=== PATIENT | male | born 1990 | race Caucasian/White ===

== ENCOUNTER 2017-05-16 19:51 | Emergency (ER) | payer SELFPAY ==
[~2017-05-16] VITALS: Ht 180.3 cm; Wt 78.0 kg
[~2017-05-16 19:51] MED LIST: CEPH500 PO; CITA40 PO; QUET200 PO
[2017-05-16 19:53] VITALS: BP 115/66; PULSE 76; RESP 16; TEMP 98.1; O2SAT 96
[2017-05-16 20:10] VITALS: BP 113/56; PULSE 80; RESP 17; O2SAT 98
--- NOTE | 2017-05-16 20:14 | PD ---
HPI Chief Complaint: Alcohol/Drug Intoxication Time Seen by Provider: 20:05 Travel History International Travel<30 days: No Contact w/Intl Traveler<30days: No Traveled to known affect area: No History of Present Illness HPI This is a 27-year-old male who reports that he has been diagnosed with bipolar disorder, PTSD. He presents voluntarily requesting psychiatric evaluation. He reports that for 6 years he has been feeling depressed and over the past several months he has been feeling increasingly suicidal. He reports that yesterday he attempted to jump in front of a car in order to kill himself however the car swerved at the last minute. He reports he quit drug use as well , today's injected meth and Dilaudid into his forearms. He also drank for loco. He went initially to [facility] in an attempt to enter their drug detoxification center however because there are full he presents here now requesting psychiatric evaluation. He reports that his girlfriend is here with a similar chief complaint. He has no other complaints at this time. [facility] Past Medical History Anxiety: Yes Depression: Yes Cardiovascular Problems: No (See EMR) Endocrine: No Genitourinary: No Headaches: No (See EMR) Immune Disorder: No Musculoskeletal: No Neurologic: No Psychiatric: Yes (diagnoised with ADD when younger) Reproductive: No Respiratory: No Social History Alcohol Use: Yes Tobacco Use: Yes Substance Use: Yes (AMPHETAMINES, BENZOS) Allergies-Medications (Allergen,Severity, Reaction): Coded Allergies: No Known Allergies (Unverified , 05/16/17) Reported Meds & Prescriptions Reported Meds & Active Scripts Active Review of Systems Except as stated in HPI: all other systems reviewed are Neg Physical Exam Narrative GENERAL: This is a well-developed well-nourished male in no acute distress SKIN: Warm and dry. Non-erythematous track kaur are noted on the proximal forearms. HEAD: Atraumatic. Normocephalic. EYES: Pupils equal and round reactive to light extraocular muscles are intact. No scleral icterus. No injection or drainage. ENT: No nasal bleeding or discharge. Mucous membranes pink and moist. NECK: Trachea midline. No JVD. CARDIOVASCULAR: Regular rate and rhythm. No murmur appreciated. RESPIRATORY: No accessory muscle use. Clear to auscultation. Breath sounds equal bilaterally. GASTROINTESTINAL: Abdomen soft, non-tender, nondistended. Hepatic and splenic margins not palpable. MUSCULOSKELETAL: No obvious deformities. No edema. NEUROLOGICAL: Awake and alert. No obvious cranial nerve deficits. Motor grossly within normal limits. Normal speech. PSYCHIATRIC: Appropriate mood and affect; insight and judgment normal. Data Data Last Documented VS Vital Signs Date Time Temp Pulse Resp B/P Pulse Ox O2 Delivery O2 Flow Rate FiO2 05/16/17 20:10 80 17 113/56 98 Room Air 05/16/17 19:53 98.1 Orders Complete Blood Count With Diff (05/16/17 20:11) Comprehensive Metabolic Panel (05/16/17 20:11) Psych Screen (05/16/17 20:11) Drug Screen, Random Urine (05/16/17 20:11) Alcohol (Ethanol) (05/16/17 20:11) Salicylates (Aspirin) (05/16/17 20:11) Tylenol (Acetaminophen) (05/16/17 20:11) Labs Laboratory Tests Test 05/16/17 05/16/17 20:15 20:20 White Blood Count 7.7 TH/MM3 Red Blood Count 3.96 MIL/MM3 Hemoglobin 11.8 GM/DL Hematocrit 33.6 % Mean Corpuscular Volume 84.7 FL Mean Corpuscular Hemoglobin 29.9 PG Mean Corpuscular Hemoglobin 35.3 % Concent Red Cell Distribution Width 13.1 % Platelet Count 207 TH/MM3 Mean Platelet Volume 8.9 FL Neutrophils (%) (Auto) 50.2 % Lymphocytes (%) (Auto) 33.5 % Monocytes (%) (Auto) 10.5 % Eosinophils (%) (Auto) 5.3 % Basophils (%) (Auto) 0.5 % Neutrophils # (Auto) 3.9 TH/MM3 Lymphocytes # (Auto) 2.6 TH/MM3 Monocytes # (Auto) 0.8 TH/MM3 Eosinophils # (Auto) 0.4 TH/MM3 Basophils # (Auto) 0.0 TH/MM3 CBC Comment DIFF FINAL Differential Comment Sodium Level 141 MEQ/L Potassium Level 3.7 MEQ/L Chloride Level 105 MEQ/L Carbon Dioxide Level 27.2 MEQ/L Anion Gap 9 MEQ/L Blood Urea Nitrogen 20 MG/DL Creatinine 1.10 MG/DL Estimat Glomerular Filtration 82 ML/MIN Rate Random Glucose 101 MG/DL Calcium Level 8.3 MG/DL Total Bilirubin 1.3 MG/DL Aspartate Amino Transf 62 U/L (AST/SGOT) Alanine Aminotransferase 96 U/L (ALT/SGPT) Alkaline Phosphatase 66 U/L Total Protein 6.6 GM/DL Albumin 3.7 GM/DL Salicylates Level LESS THAN 1.7 MG/DL Ethyl Alcohol Level LESS THAN 3 MG/DL Urine Opiates Screen NEG Urine Barbiturates Screen NEG Urine Amphetamines Screen POS Urine Benzodiazepines Screen NEG Urine Cocaine Screen NEG Urine Cannabinoids Screen POS MDM Medical Decision Making Medical Screen Exam Complete: Yes Emergency Medical Condition: Yes Medical Record Reviewed: Yes Differential Diagnosis Substance-induced mood disorder, polysubstance abuse, major depressive disorder , depressive disorder not otherwise specified, acute psychosis Narrative Course This is a 27-year-old male who presents voluntarily requesting psychiatric evaluation of depression and suicidal thoughts. Mental health screening discussed with the patient. Psychiatric screen ordered. The patient's lab work has been reviewed. His AST is 62, ALT is 96. His alcohol level is within normal limits. His drug screen is positive for amphetamines and cannabinoids. He is medical cleared for psychiatric disposition. Diagnosis Primary Impression: Suicidal ideation Additional Impression: Polysubstance abuse Nahid Roberto May 16, 2017 20:14
[2017-05-16 20:43] LABS: AUTOMATED NEUTROPHIL # 3.9 TH/MM3 (1.8-7.7); BASOPHIL % 0.5 % (0.0-2.0); EOSINOPHIL # 0.4 TH/MM3 (0-0.4); EOSINOPHIL % 5.3 % (0.0-4.0); HEMATOCRIT 33.6 % (39.0-51.0); HEMO FLAGS DIFF FINAL; LYMPH % 33.5 % (9.0-44.0); LYMPHOCYTE # 2.6 TH/MM3 (1.0-4.8); MEAN CELL VOLUME 84.7 FL (80.0-100.0); MEAN CORPUSCULAR HEMOGLOBIN 29.9 PG (27.0-34.0); MEAN CORPUSCULAR HGB CONC 35.3 % (32.0-36.0); MONO % 10.5 % (0.0-8.0); NEUT % 50.2 % (16.0-70.0); PLATELET COUNT 207 TH/MM3 (150-450); RED BLOOD COUNT 3.96 MIL/MM3 (4.50-5.90); RED CELL DISTRIBUTION WIDTH 13.1 % (11.6-17.2); WHITE BLOOD COUNT 7.7 TH/MM3 (4.0-11.0)
[2017-05-16 20:52] LABS: AMPHETAMINE, URINE POS (NEG); BARBITURATES, URINE NEG (NEG); COCAINE, URINE NEG (NEG)
[2017-05-16 20:59] LABS: ANION GAP 9 MEQ/L (5-15); AST (GOT) 62 U/L (15-37); BICARBONATE 27.2 MEQ/L (21.0-32.0); BLOOD UREA NITROGEN 20 MG/DL (7-18); CHLORIDE 105 MEQ/L (98-107); GLOMERULAR FILTRATION RATE 82 ML/MIN (>89); POTASSIUM 3.7 MEQ/L (3.5-5.1); SODIUM (NA) 141 MEQ/L (136-145)
[2017-05-16 21:00] LABS: ALT (GPT) 96 U/L (12-78)
[2017-05-16 21:02] LABS: ALKALINE PHOSPHATASE 66 U/L (45-117); TOTAL BILIRUBIN ADULT 1.3 MG/DL (0.2-1.0)
[2017-05-16 21:10] LABS: ACETAMINOPHEN LESS THAN 2.0 MCG/ML (10.0-30.0)
[2017-05-17 02:03] VITALS: BP 108/58; PULSE 68; RESP 18; TEMP 98.2; O2SAT 97
[2017-05-17 06:07] VITALS: BP 134/70; PULSE 58; RESP 17; TEMP 94.2; O2SAT 99
--- NOTE | 2017-05-17 11:11 | PD ---
History of Present Illness Chief Complaint: Alcohol/Drug Intoxication Time Seen by Provider: 10:55 Travel History International Travel<30 Days: No Contact w/Intl Traveler<30days: No Known affected area: No Legal Status Legal Status: Voluntary History of Present Illness: History of Present Illness HPI This is a 27-year-old male who reports a hx of bipolar disorder, PTSD as well as substance use disorder who presents voluntarily requesting psychiatric evaluation. As per Ed note which is reviewed and in part included in this report " He reports that for 6 years he has been feeling depressed and over the past several months he has been feeling increasingly suicidal. He reports that yesterday he attempted to jump in front of a car in order to kill himself however the car swerved at the last minute. He reports he quit drug use as well , today's injected meth and Dilaudid into his forearms. He also drank 4 LOURDES . He went initially to [facility] in an attempt to enter their drug detoxification center however because there are full he presents here now requesting psychiatric evaluation. He reports that his girlfriend is here with a similar chief complaint. EMR is reviewed. He was admitted to inpatient unit in [facility] [place] . Current toxicology is positive for amphetamines and cannabinoids. Patient has been monitored in J pod and has presented no suicidality and no behavioral concerns. He has been sleeping well. This morning he is asleep but arouses with verbal prompts. Speech is clear and logical. There is no pressured speech. There is no indiction of any thought process disturbance. No psychosis and no liz. He is requesting treatment for substance use as well as " to get my head straight". He does not elaborate on this. He tells me that he was released from group home on Monday after a 30 day stay there and did not receive any medication while he was there. He is unable to tell me when he lat took medication " I don't remember". He cannot tell me the names of his last medications " I don't remember". There is no suicidal or homicidal ideation , intent or plan. He is requesting treatment for substance use as well as finding a sober living house. He is currently homeless. [facility] Past Medical History Anxiety: Yes Depression: Yes Cardiovascular Problems: No (See EMR) Endocrine: No Genitourinary: No Hypertension: Yes Immune Disorder: No Musculoskeletal: No Neurologic: No Psychiatric: Yes (diagnoised with ADD when younger) Reproductive: No Respiratory: No Past Surgical History Surgical History: No Previous Surgery Psychiatric History Psychiatric History Hx Psychiatric Treatment: Hx of admit Jul 26- depression, substance induced mood d/o. History of Inpatient Treatment: Yes Guns or firearms in home: No Social History Single , homeless male. Hx Alcohol Use: Yes Hx Tobacco Use: Yes Hx Substance Use: Yes (Dilaudid, Meth) Substance Use Type: Alcohol, Amphetamines-Stimulants, Nicotine/Cigarettes, Benzos (Valium,Xanax), Other Hx of Substance Use Treatment: No Family Psychiatric History Negative Allergies-Medications (Allergen,Severity, Reaction): Coded Allergies: No Known Allergies (Unverified , 05/16/17) Reported Meds & Prescriptions Reported Meds & Active Scripts Active Review of Systems Except as stated in HPI: all other systems reviewed are Neg Exam [place]: Person (ox4) Mood: Calm Affect: Appropriate Speech: Clear Eye Contact: Indirect Memory Intact: Comment (no impairmetn. Refuses to answer some questions staing " I don't remember". ) Hallucinations: Other (negative) Delusions: No Suicidal: Ideation (Negative) Homicidal: Ideation (Negative) Insight/Judgement Poor. Not impaired. MDM Medical Decision Making Medical Record Reviewed: Yes Assessment/Plan 27 year old male with history os substance use disorder as well as substance induced mood disorder who presents to ed on a voluntary status requesting an evaluation and treatment for substance use as well as claiming he has had thoughts of running in front of a bus. Patient was monitored and presented no suicidality. He continued to request treatment for his substance use which we do not provide here at [facility]. he is provided with area resources for substance abuse treatment including [facility]. Orders Complete Blood Count With Diff (05/16/17 20:11) Comprehensive Metabolic Panel (05/16/17 20:11) Psych Screen (05/16/17 20:11) Drug Screen, Random Urine (05/16/17 20:11) Alcohol (Ethanol) (05/16/17 20:11) Salicylates (Aspirin) (05/16/17 20:11) Tylenol (Acetaminophen) (05/16/17 20:11) Diet Regular Basic (05/17/17 Breakfast) Results Vital Signs Date Time Temp Pulse Resp B/P Pulse Ox O2 Delivery O2 Flow Rate FiO2 05/17/17 06:07 94.2 58 17 134/70 99 Room Air 05/17/17 02:03 98.2 68 18 108/58 97 Room Air 05/16/17 20:10 80 17 113/56 98 Room Air 05/16/17 20:08 77 18 98 Room Air 05/16/17 19:53 98.1 76 16 115/66 96 Room Air Laboratory Tests Test 05/16/17 05/16/17 20:15 20:20 White Blood Count 7.7 Red Blood Count 3.96 Hemoglobin 11.8 Hematocrit 33.6 Mean Corpuscular Volume 84.7 Mean Corpuscular Hemoglobin 29.9 Mean Corpuscular Hemoglobin 35.3 Concent Red Cell Distribution Width 13.1 Platelet Count 207 Mean Platelet Volume 8.9 Neutrophils (%) (Auto) 50.2 Lymphocytes (%) (Auto) 33.5 Monocytes (%) (Auto) 10.5 Eosinophils (%) (Auto) 5.3 Basophils (%) (Auto) 0.5 Neutrophils # (Auto) 3.9 Lymphocytes # (Auto) 2.6 Monocytes # (Auto) 0.8 Eosinophils # (Auto) 0.4 Basophils # (Auto) 0.0 CBC Comment DIFF FINAL Differential Comment Sodium Level 141 Potassium Level 3.7 Chloride Level 105 Carbon Dioxide Level 27.2 Anion Gap 9 Blood Urea Nitrogen 20 Creatinine 1.10 Estimat Glomerular Filtration 82 Rate Random Glucose 101 Calcium Level 8.3 Total Bilirubin 1.3 Aspartate Amino Transf 62 (AST/SGOT) Alanine Aminotransferase 96 (ALT/SGPT) Alkaline Phosphatase 66 Total Protein 6.6 Albumin 3.7 Salicylates Level LESS THAN 1.7 Acetaminophen Level LESS THAN 2.0 Ethyl Alcohol Level LESS THAN 3 Urine Opiates Screen NEG Urine Barbiturates Screen NEG Urine Amphetamines Screen POS Urine Benzodiazepines Screen NEG Urine Cocaine Screen NEG Urine Cannabinoids Screen POS Diagnosis Primary Impression: Polysubstance abuse Ruled Out: Suicidal ideation Psychiatrically Cleared: Yes Disposition: 01 DISCHARGE HOME Condition: Stable Tila Perry [facility] May 17, 2017 11:11
[2017-05-17 11:17] VITALS: BP 130/74; TEMP 97.1
== END 2017-05-17 11:19 | disposition home or self-care (01) ==
LOC: NEPC 19:51 → NEPJ 05-17 11:19
DX: F13.10 Sedative, hypnotic or anxiolytic abuse, uncomplicated (principal); F15.10 Other stimulant abuse, uncomplicated; F19.10 Other psychoactive substance abuse, uncomplicated; F17.210 Nicotine dependence, cigarettes, uncomplicated; R45.851 Suicidal ideations
CPT/HCPCS: 80053; 80307; 85025; 99284

== ENCOUNTER 2017-05-25 22:08 | Emergency (ER) | payer OTHER ==
[~2017-05-25] VITALS: Ht 175.3 cm; Wt 82.0 kg
[2017-05-25 22:23] VITALS: BP 137/73; PULSE 76; RESP 16; TEMP 98.7; O2SAT 99
[2017-05-25 23:04] VITALS: BP 108/66; PULSE 79; RESP 15; O2SAT 100
[2017-05-25 23:05] LABS: AUTOMATED NEUTROPHIL # 1.6 TH/MM3 (1.8-7.7); BASOPHIL % 0.8 % (0.0-2.0); EOSINOPHIL # 0.1 TH/MM3 (0-0.4); HEMATOCRIT 37.5 % (39.0-51.0); HEMO FLAGS DIFF FINAL; LYMPH % 39.8 % (9.0-44.0); LYMPHOCYTE # 1.6 TH/MM3 (1.0-4.8); MEAN CELL VOLUME 84.9 FL (80.0-100.0); MEAN CORPUSCULAR HEMOGLOBIN 29.1 PG (27.0-34.0); MEAN CORPUSCULAR HGB CONC 34.3 % (32.0-36.0); NEUT % 38.4 % (16.0-70.0); PLATELET COUNT 199 TH/MM3 (150-450); RED BLOOD COUNT 4.42 MIL/MM3 (4.50-5.90); RED CELL DISTRIBUTION WIDTH 13.3 % (11.6-17.2); WHITE BLOOD COUNT 4.1 TH/MM3 (4.0-11.0)
[2017-05-25 23:24] LABS: ALT (GPT) 103 U/L (12-78); ANION GAP 8 MEQ/L (5-15); AST (GOT) 66 U/L (15-37); BLOOD UREA NITROGEN 22 MG/DL (7-18); CHLORIDE 101 MEQ/L (98-107); GLOMERULAR FILTRATION RATE 93 ML/MIN (>89); POTASSIUM 4.1 MEQ/L (3.5-5.1); SODIUM (NA) 136 MEQ/L (136-145)
[2017-05-25 23:27] LABS: ALKALINE PHOSPHATASE 72 U/L (45-117); TOTAL BILIRUBIN ADULT 1.1 MG/DL (0.2-1.0)
--- NOTE | 2017-05-26 00:01 | PD ---
HPI Chief Complaint: Suicide Ideation/Attempt Time Seen by Provider: 23:04 Travel History International Travel<30 days: No Contact w/Intl Traveler<30days: No Traveled to known affect area: No History of Present Illness HPI This is a 27-year-old male who presents to the emergency department having been brought in under a Carrera act because he was threatening to kill himself. He said he would throw himself under a car. His behavior was erratic and evidently he got very close to the street. Patient was just seen in the emergency department one week ago in the setting of substance intoxication. He denies any drug use today but doesn't provide much history and is fairly uncooperative with examination. PFSH Past Medical History Anxiety: Yes Depression: Yes Endocrine: No Genitourinary: No Hypertension: Yes Immune Disorder: No Musculoskeletal: No Neurologic: No Psychiatric: Yes (diagnoised with ADD when younger, PTSD) Reproductive: No Respiratory: No Schizophrenia: Yes Social History Alcohol Use: Yes Tobacco Use: Yes Substance Use: Yes (Dilaudid, Meth, marijuana) Allergies-Medications (Allergen,Severity, Reaction): Coded Allergies: No Known Allergies (Unverified , 05/25/17) Reported Meds & Prescriptions Reported Meds & Active Scripts Active No Active Prescriptions or Reported Medications Review of Systems ROS Limitations: Uncooperative Physical Exam Narrative GENERAL:Well appearing, no acute distress SKIN: Focused skin assessment warm and dry. HEAD: Atraumatic. Normocephalic. EYES: Pupils equal and round. No injection or drainage. ENT: Moist mucous membranes NECK: Trachea midline. CARDIOVASCULAR: Regular rate and rhythm. No murmur appreciated. RESPIRATORY: Clear to auscultation. Breath sounds equal bilaterally. GASTROINTESTINAL: Abdomen soft, non-tender, nondistended. MUSCULOSKELETAL: No obvious deformities. NEUROLOGICAL: Awake and alert. No obvious cranial nerve deficits. Moving all extremities. PSYCHIATRIC: Poor eye contact, provides limited answers to questions, somewhat uncooperative with questioning Data Data Last Documented VS Vital Signs Date Time Temp Pulse Resp B/P Pulse Ox O2 Delivery O2 Flow Rate FiO2 05/25/17 23:04 79 15 108/66 100 Room Air 05/25/17 22:23 98.7 Orders Complete Blood Count With Diff (05/25/17 22:42) Comprehensive Metabolic Panel (05/25/17 22:42) Psych Screen (05/25/17 22:42) Drug Screen, Random Urine (05/25/17 22:42) Alcohol (Ethanol) (05/25/17 23:11) Labs Laboratory Tests Test 05/25/17 22:39 White Blood Count 4.1 TH/MM3 Red Blood Count 4.42 MIL/MM3 Hemoglobin 12.9 GM/DL Hematocrit 37.5 % Mean Corpuscular Volume 84.9 FL Mean Corpuscular Hemoglobin 29.1 PG Mean Corpuscular Hemoglobin 34.3 % Concent Red Cell Distribution Width 13.3 % Platelet Count 199 TH/MM3 Mean Platelet Volume 8.8 FL Neutrophils (%) (Auto) 38.4 % Lymphocytes (%) (Auto) 39.8 % Monocytes (%) (Auto) 18.0 % Eosinophils (%) (Auto) 3.0 % Basophils (%) (Auto) 0.8 % Neutrophils # (Auto) 1.6 TH/MM3 Lymphocytes # (Auto) 1.6 TH/MM3 Monocytes # (Auto) 0.7 TH/MM3 Eosinophils # (Auto) 0.1 TH/MM3 Basophils # (Auto) 0.0 TH/MM3 CBC Comment DIFF FINAL Differential Comment Sodium Level 136 MEQ/L Potassium Level 4.1 MEQ/L Chloride Level 101 MEQ/L Carbon Dioxide Level 27.0 MEQ/L Anion Gap 8 MEQ/L Blood Urea Nitrogen 22 MG/DL Creatinine 0.98 MG/DL Estimat Glomerular Filtration 93 ML/MIN Rate Random Glucose 95 MG/DL Calcium Level 9.2 MG/DL Total Bilirubin 1.1 MG/DL Aspartate Amino Transf 66 U/L (AST/SGOT) Alanine Aminotransferase 103 U/L (ALT/SGPT) Alkaline Phosphatase 72 U/L Total Protein 7.4 GM/DL Albumin 4.1 GM/DL [facility] Medical Decision Making Medical Screen Exam Complete: Yes Emergency Medical Condition: Yes Medical Record Reviewed: Yes (patient was seen here one week ago by psychiatry and a very similar situation having been threatening to jump in front of a car. His drug screen at that time was positive for cannabinoid and amphetamines.) Interpretation(s) Mild anemia Electrolytes are reassuring Differential Diagnosis Substance-induced mood disorder, amphetamine intoxication, cannabinoid intoxication, alcohol intoxication, depression Narrative Course This is a 27-year-old male who presents to the emergency department having been making suicidal statements. He was placed under a Carrera act. I suspect the patient's statements are related to substance abuse and this reflects a substance-induced mood disorder. Patient will be observed and evaluated by psychiatry and in the morning when his substances have cleared. Labs were obtained which were all reassuring. Scripts No Active Prescriptions or Reported Meds Kalie Gaston MD May 26, 2017 00:01
[2017-05-26 03:39] LABS: AMPHETAMINE, URINE POS (NEG); BARBITURATES, URINE NEG (NEG); COCAINE, URINE NEG (NEG)
[2017-05-26 05:55] VITALS: BP 114/68; PULSE 86; RESP 16; O2SAT 99
[2017-05-26 15:27] VITALS: BP 125/58; PULSE 74; RESP 18; O2SAT 98
--- NOTE | 2017-05-26 16:00 | PD ---
History of Present Illness Chief Complaint: Suicide Ideation/Attempt Time Seen by Provider: 15:50 Travel History International Travel<30 Days: No Contact w/Intl Traveler<30days: No Known affected area: No Legal Status Legal Status: Carrera Act Carrera Act Signed By: Kaiden Montes Carrera Act Comment: 05/25/2017 9:36 PM History of Present Illness: History of Present Illness HPI This is a 27-year-old male with history of substance use disorder who presents to the emergency department under a Carrera act initiated by GINO for suicidal ideation. As per the report the patient was at a friend's house and he was talking about suicide. He said he would throw himself under a car. His behavior was erratic and evidently he got very close to the street. The patient at the time was under the influence of amphetamines as well s cannabinoids. The patient was monitored in J pod. he slept well and he ate well. he presented no suicidality. The patient is seen in J pod. he is alert and calm. His speech is clear and logical, goal directed. he states" I said I was going to jump in front of the truck because I was upset". I don't use amphetamines all the time but I guess I get upset when I do". The patient does not present any psychosis. No liz or hypomania. He denies suicidal ideation at this time. I endeavor to engage him in discussing seeking treatment for his substance use which is negatively affecting his mood but he declines at this time to consider this. He again reiterates that he only uses occasionally. PFSH Past Medical History Anxiety: Yes Depression: Yes Endocrine: No Genitourinary: No Hypertension: Yes Immune Disorder: No Musculoskeletal: No Neurologic: No Psychiatric: Yes (diagnoised with ADD when younger, PTSD) Reproductive: No Respiratory: No Schizophrenia: Yes Psychiatric History Psychiatric History Hx Psychiatric Treatment: Hx of admit Jul 26-2015 depression, substance induced mood d/o. History of Inpatient Treatment: Yes Guns or firearms in home: No Social History Single male. Homeless and staying with a friend. Hx Alcohol Use: Yes Hx Tobacco Use: Yes Hx Substance Use: Yes (Dilaudid, Meth, marijuana) Substance Use Type: Alcohol, Amphetamines-Stimulants, Nicotine/Cigarettes, Benzos (Valium,Xanax), Other Hx of Substance Use Treatment: No Family Psychiatric History Negative Allergies-Medications (Allergen,Severity, Reaction): Coded Allergies: No Known Allergies (Unverified , 05/25/17) Reported Meds & Prescriptions Reported Meds & Active Scripts Active No Active Prescriptions or Reported Medications Review of Systems Except as stated in HPI: all other systems reviewed are Neg Exam Alert: Yes [place]: Person (ox4) Mood: Calm Affect: Appropriate Speech: Clear, Logical Eye Contact: Normal Memory Intact: Comment (not impaired) Hallucinations: Other (negative) Delusions: No Suicidal: Ideation (deneis any) Homicidal: Ideation (deneis any) Insight/Judgement Poor. Poor MDM Medical Decision Making Medical Record Reviewed: Yes Assessment/Plan 27 year old male under a BA after he made suicidal statements as well as was found close to traffic in context of amphetamine and cannabinoid use. Patient was monitored in J pod and he presented no suicidality or behavioral concerns. Denies suicidal ideation. At this time he does not meet criteria for BA. He does not present acute risk to self although a chronic risk of self harm exists due to his persistent use of substances. I have attempted to discuss with him treatment for his substance use but he declines at thsi time. Orders Complete Blood Count With Diff (05/25/17 22:42) Comprehensive Metabolic Panel (05/25/17 22:42) Psych Screen (05/25/17 22:42) Drug Screen, Random Urine (05/25/17 22:42) Alcohol (Ethanol) (05/25/17 23:11) Diet Regular Basic (05/26/17 Breakfast) Diet Regular Basic (05/26/17 Lunch) Diet Regular Basic (05/26/17 Dinner) Results Vital Signs Date Time Temp Pulse Resp B/P Pulse Ox O2 Delivery O2 Flow Rate FiO2 05/26/17 15:27 74 18 125/58 98 Room Air 05/26/17 05:55 86 16 114/68 99 Room Air 05/25/17 23:04 79 15 108/66 100 Room Air 05/25/17 22:23 98.7 76 16 137/73 99 Room Air Laboratory Tests Test 05/25/17 05/25/17 22:39 22:42 White Blood Count 4.1 Red Blood Count 4.42 Hemoglobin 12.9 Hematocrit 37.5 Mean Corpuscular Volume 84.9 Mean Corpuscular Hemoglobin 29.1 Mean Corpuscular Hemoglobin 34.3 Concent Red Cell Distribution Width 13.3 Platelet Count 199 Mean Platelet Volume 8.8 Neutrophils (%) (Auto) 38.4 Lymphocytes (%) (Auto) 39.8 Monocytes (%) (Auto) 18.0 Eosinophils (%) (Auto) 3.0 Basophils (%) (Auto) 0.8 Neutrophils # (Auto) 1.6 Lymphocytes # (Auto) 1.6 Monocytes # (Auto) 0.7 Eosinophils # (Auto) 0.1 Basophils # (Auto) 0.0 CBC Comment DIFF FINAL Differential Comment Sodium Level 136 Potassium Level 4.1 Chloride Level 101 Carbon Dioxide Level 27.0 Anion Gap 8 Blood Urea Nitrogen 22 Creatinine 0.98 Estimat Glomerular Filtration 93 Rate Random Glucose 95 Calcium Level 9.2 Total Bilirubin 1.1 Aspartate Amino Transf 66 (AST/SGOT) Alanine Aminotransferase 103 (ALT/SGPT) Alkaline Phosphatase 72 Total Protein 7.4 Albumin 4.1 Ethyl Alcohol Level LESS THAN 3 Urine Opiates Screen NEG Urine Barbiturates Screen NEG Urine Amphetamines Screen POS Urine Benzodiazepines Screen NEG Urine Cocaine Screen NEG Urine Cannabinoids Screen POS Diagnosis Primary Impression: History of methamphetamine abuse Additional Impression: Substance induced mood disorder Psychiatrically Cleared: Yes Med/ Other Pt Specific Info: No Meds Exist/No RX given Prescriptions No Active Prescriptions or Reported Meds Disposition: 01 DISCHARGE HOME Condition: Stable Problem Qualifiers Tila Perry May 26, 2017 16:00
== END 2017-05-26 16:20 | disposition home or self-care (01) ==
LOC: NEPC 22:08 → NEPJ 05-26 16:20
DX: F39 Unspecified mood [affective] disorder (principal); F15.10 Other stimulant abuse, uncomplicated; F32.9 Major depressive disorder, single episode, unspecified; F41.9 Anxiety disorder, unspecified; I10 Essential (primary) hypertension; F43.10 Post-traumatic stress disorder, unspecified; F20.9 Schizophrenia, unspecified; Z59.0 Homelessness; Z72.0 Tobacco use
CPT/HCPCS: 80053; 80307; 85025; 99283

== ENCOUNTER 2017-05-26 23:04 | Emergency (ER) | payer OTHER ==
[~2017-05-26] VITALS: Ht 175.3 cm; Wt 68.0 kg
[2017-05-27 01:00] VITALS: BP 113/57; PULSE 66; RESP 16; TEMP 98.3; O2SAT 98
--- NOTE | 2017-05-27 01:02 | PD ---
HPI Chief Complaint: Psychiatric Symptoms Time Seen by Provider: 00:58 Travel History International Travel<30 days: No Contact w/Intl Traveler<30days: No Traveled to known affect area: No History of Present Illness HPI Patient is a 27-year-old male who presents emergency department for voluntary psychiatric evaluation. Patient was seen in our emergency department yesterday after he was [place] acted reportedly for suicidal ideation stating that he was in a jump in front of traffic. He was medically cleared and evaluated by psychiatry. [place] that this was due to substance induced mood disorder. Patient was given bus ticket to get back to [place] where he can "couch hop", patient is homeless. Patient states that he never got that far, he couldn't get on a bus because he didn't have a shirt her shoes but "acquired to them" throughout the course the day. Patient was walking, got tired and fell asleep on a bench when he was aroused by police. Police told him that he had 2 options either to be [place] acted her come in voluntarily. Patient however denied any suicidal ideation tonight, states that he feels depressed but not suicidal and does not have a plan. Denies any homicidal ideation. PFSH Past Medical History Anxiety: Yes Depression: Yes Endocrine: No Genitourinary: No Hypertension: Yes Immune Disorder: No Musculoskeletal: No Neurologic: No Psychiatric: Yes (diagnoised with ADD when younger, PTSD) Reproductive: No Respiratory: No Schizophrenia: Yes Social History Alcohol Use: Yes Tobacco Use: Yes Substance Use: Yes (Dilaudid, Meth, marijuana) Allergies-Medications (Allergen,Severity, Reaction): Coded Allergies: No Known Allergies (Unverified , 05/27/17) Reported Meds & Prescriptions Reported Meds & Active Scripts Active No Active Prescriptions or Reported Medications Review of Systems ROS Limitations: Poor Historian Except as stated in HPI: all other systems reviewed are Neg Physical Exam Exam Limitations: Poor Historian Narrative GENERAL: Disheveled male in no acute distress SKIN: Focused skin assessment warm/dry. HEAD: Normocephalic. EYES: No scleral icterus. No injection or drainage. ENT: Mucous membranes pink and moist. NECK: Supple CARDIOVASCULAR: Regular rate and rhythm. RESPIRATORY: No accessory muscle use. MUSCULOSKELETAL: Normal gait NEUROLOGICAL: Awake and alert. Normal speech. PSYCHIATRIC: Blunted mood and affect, admits to depression but denies any delusions, hallucinations, suicidal or homicidal ideation Data Data Last Documented VS Vital Signs Date Time Temp Pulse Resp B/P Pulse Ox O2 Delivery O2 Flow Rate FiO2 05/27/17 01:00 98.3 66 16 113/57 98 [facility] Medical Decision Making Medical Screen Exam Complete: Yes Emergency Medical Condition: Yes Medical Record Reviewed: Yes Differential Diagnosis 27-year-old male here for voluntary psychiatric evaluation. Frankly I don't think patient would be here had police not found him, patient admits this. He is depressed but not suicidal. Patient had a psychiatric evaluation within the last 12 hours and I do not think this needs to be repeated. I agree this is likely substance-induced mood disorder with his depression and concurrent polysubstance abuse. He was offered outpatient resources for both his mental health and chemical dependency. Patient was appreciative and discharged home. Narrative Course See above Diagnosis Primary Impression: Substance induced mood disorder Referrals: [facility] for appointment Additional Instructions: Seek outpatient management for her depression, substance abuse. I suggest you call [facility]i [facility] on Monday. Med/Other Pt SpecificInfo: No Change to Meds Scripts No Active Prescriptions or Reported Meds Disposition: 01 DISCHARGE HOME Condition: Stable Susan Maxwell MD May 27, 2017 01:02
== END 2017-05-27 01:15 | disposition home or self-care (01) ==
LOC: NEPE 23:04
DX: F19.14 Other psychoactive substance abuse with psychoactive substance-induced mood disorder (principal); I10 Essential (primary) hypertension; F43.10 Post-traumatic stress disorder, unspecified; F20.9 Schizophrenia, unspecified; Z72.0 Tobacco use
CPT/HCPCS: 99283